=== PATIENT | male | born 1980 | race Caucasian/White ===

== ENCOUNTER 2017-10-07 15:50 | Inpatient (IN) | payer MEDICAID ==
[2017-10-07 15:51] VITALS: BMI 24.8
--- NOTE | 2017-10-07 16:36 | C.PDOC ---
History Of Present Illness <Vi Luz - Last Filed: 10/07/17 18:09> <Kd Reynolds - Last Filed: 10/07/17 19:58> 37 y/o male with history of bipolar disorder presents to ED sent by for evaluation on worsening anxiety, depression and auditory hallucinations, " cant be around people any more". Patient reports he is compliant with medication. Otherwise, pt denies any physical complaints at this time. On re- eval, pt appears AAO#3, appropriate, not in any apparent distress. (Vi Luz) History Per: Patient History/Exam Limitations: no limitations Onset/Duration Of Symptoms: Days Current Symptoms Are (Timing): Still Present Suicide/Self Injury Attempted (Context): None Modifying Factor(s): None Associated Symptoms: Anxiety <Vi Luz - Last Filed: 10/07/17 18:09> <Kd Reynolds - Last Filed: 10/07/17 19:58> Time Seen by Provider: 10/07/17 16:21 Chief Complaint (Nursing): Psychiatric Evaluation Past Medical History Reviewed: Historical Data, Nursing Documentation, Vital Signs - Medical History PMH: Anxiety, Bipolar Disorder Surgical History: No Surg Hx Family History: States: No Known Family Hx - Social History Hx Alcohol Use: No Hx Substance Use: No - Immunization History Hx Influenza Vaccination: No <Vi Luz - Last Filed: 10/07/17 18:09> Vital Signs: Last Vital Signs Temp 98.1 F 10/07/17 16:01 Pulse 97 H 10/07/17 16:01 Resp 18 10/07/17 16:01 BP 128/85 10/07/17 16:01 Pulse Ox 98 10/07/17 18:14 Review Of Systems Constitutional: Negative for: Fever, Chills Cardiovascular: Negative for: Chest Pain, Palpitations Respiratory: Negative for: Shortness of Breath Psych: Positive for: Anxiety. Negative for: Suicidal ideation, Withdrawal <Vi Luz - Last Filed: 10/07/17 18:09> Physical Exam - Physical Exam Appears: Well, Non-toxic, No Acute Distress, Other (Appropriate appearing) Skin: Warm, Dry, No Rash Head: Atraumatic, Normacephalic Eye(s): bilateral: PERRL Nose: No Flaring, No Discharge Oral Mucosa: Moist, No Drooling Tongue: Normal Appearing Lips: Normal Appearing Throat: No Erythema, No Drooling Neck: Trachea Midline, Supple Cardiovascular: Rhythm Regular Respiratory: No Decreased Breath Sounds, No Accessory Muscle Use, No Rales, No Rhonchi, No Stridor, No Wheezing Gastrointestinal/Abdominal: Soft, No Tenderness, No Distention, No Guarding, No Rebound Extremity: Normal ROM, No Pedal Edema, Capillary Refill (<2 seconds), No Deformity, No Swelling Neurological/Psych: Oriented x3, Normal Speech, Normal Cognition <Vi Luz - Last Filed: 10/07/17 18:09> ED Course And Treatment - Laboratory Results Result Diagrams: 10/07/17 17:03 10/07/17 17:03 Lab Interpretation: Normal O2 Sat by Pulse Oximetry: 98 (RA) Pulse Ox Interpretation: Normal Progress Note: At 18:00, pt is medically cleared for PES evaluation. After p was seen by PES, admission to psych floor s/o with Dx: Bipolar. 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 - Scribe Statement The provider has reviewed the documentation as recorded by the Scribe <Vi Luz - Last Filed: 10/07/17 18:09> <Kd Reynolds - Last Filed: 10/07/17 19:58> - Scribe Statement Magui Watkins All medical record entries made by the Scribe were at my direction and personally dictated by me. I have reviewed the chart and agree that the record accurately reflects my personal performance of the history, physical exam, medical decision making, and the department course for this patient. I have also personally directed, reviewed, and agree with the discharge instructions and disposition. (Vi Luz)
[2017-10-07 17:07] LABS: BASO # 0.1 K/uL (0.0-0.2); BASO % 0.8 % (0.0-2.0); EOS # 0.1 K/uL (0.0-0.7); HEMOGLOBIN 14.3 g/dL (12.0-18.0); LYMPH % 50.2 % (20.0-40.0); MEAN CELL VOLUME 85.7 fL (80.0-94.0); MEAN CORPUSCULAR HEMOGLOBIN 29.5 pg (27.0-31.0); MEAN CORPUSCULAR HGB CONC 34.4 g/dL (33.0-37.0); MEAN PLATELET VOLUME 8.1 fL (7.2-11.7); MONO # 0.7 K/uL (0.0-0.8); MONO % 8.8 % (0.0-10.0); NEUT # 3.1 K/uL (1.8-7.0); NEUT % 39.2 % (50.0-75.0); RBC 4.85 Mil/uL (4.40-5.90); RED CELL DISTRIBUTION WIDTH 13.9 % (11.5-14.5); WHITE BLOOD COUNT 7.9 K/uL (4.8-10.8)
[2017-10-07 17:15] LABS: URINE BACTERIA RARE (<OCC); URINE BILIRUBIN NEGATIVE (NEGATIVE); URINE BLOOD NEGATIVE (NEGATIVE); URINE CLARITY Clear (Clear); URINE COLOR Yellow (YELLOW); URINE GLUCOSE (UA) NORMAL (Normal); URINE LEUKOCYTE ESTERASE NEG Leu/uL (Negative); URINE PROTEIN NEGATIVE (NEGATIVE); URINE UROBILINOGEN NORMAL mg/dL (0.2-1.0)
[2017-10-07 17:23] LABS: ALB/GLOB RATIO 1.4 (1.0-2.1); ALBUMIN 4.6 g/dL (3.5-5.0); ALT/SGPT 23 U/L (21-72); AST/SGOT 27 U/L (17-59); BLOOD UREA NITROGEN 15 mg/dL (9-20); CALCIUM 9.5 mg/dl (8.6-10.4); GFR AFRICAN-AMERICAN > 60; GFR NON-AFRICAN AMERICAN > 60
[2017-10-07 17:26] LABS: BARBITURATES, UR NEGATIVE (NEGATIVE); BENZODIAZEPINES, UR NEGATIVE (NEGATIVE); OPIATES, UR NEGATIVE (NEGATIVE); PHENCYCLIDINE, UR NEGATIVE (NEGATIVE)
--- NOTE | 2017-10-07 20:37 | PCM.BM ---
<Aman Velasquez - Last Filed: 10/07/17 20:30> Treatment Plan Problems - Problems identified on initial assessmt Anxiety Date Initiated: 10/07/17 Time Initiated: 20:39 Assessment reference: NA Status: Active Depression Date Initiated: 10/07/17 Time Initiated: 20:39 Assessment reference: NA Status: Active Treatment assets and liabiliti Patient Assests: cooperative, educated, motivated, self-reliant, ADL independent , physically healthy, good support system, negotiates basic needs, financial stabiity, cognitively intact Patient Liabilities: substance abuse (Hx of THC, ETOH, Cocaine), other (Bipolar) - Milieu Protocol Maintain good personal hygiene: daily Encourage regular showers, every shift Remind patient to perform daily oral care, every shift Assist patient to perform ADL's Conduct patient checks and document Observation sheet: Q15 minutes (For Safety) Maintain personal safety: every shift Educate patient to report safety concerns to staff, every shift Monitor environment for contraband/sharps Medication safety: Monitor for expected outcome, potential side effects: every shift, Assess barriers to learning: every shift, Assess readiness for medication education: every shift <José Majano - Last Filed: 10/08/17 10:58> - Diagnosis (1) Bipolar disorder Status: Acute Interventions: 10/08/17 10:59 * Assess/adjust medications daily and /or as needed * See patient on an individual basis 7x/week to assess level of manic behaviors and stability * Discuss risks, benefits, side effects and alternatives of medications * <oJdee Beckman - Last Filed: 10/08/17 11:49> Family Contact Family involvement: Family/SO is involved Family contact: Patient agrees to contact Family contact name: Lupe Schulz-father Family contacted how many times per week?: 1 - Goals for Treatment Patient goals for treatment: "I need therapy." Discharge/Continuing Care - Education Needs Education Needs: Patient Medication, Patient Coping Skills - Discharge Discharge Criteria: Tolerates medication w/o severe side effects, Reduction of target symptoms Discharge to:: Home, With Family - Treatment Team Participation Discussed with Family/SO: No Was Patient/Family/SO present at Treatment Team Meeting: Yes
--- NOTE | 2017-10-08 10:24 | PCM.PSYCH ---
Initial Psychiatric Evaluation - Initial Psychiatric Evaluation Type of Admission: Voluntary Legal Status: Capacity Chief Complaint (in patient's own words): CC: "I become agitated very easily" History of Present Illness and Precipitating Events: Patient is a 37 year old male, S, who lives with his parents and siblings, came to the hospital because of increasingly paranoid and agitated behavior. 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 Patient has history of Bipolar Disorder, which was diagnosed in 2012, when he was hospitalized at [facility] for symptoms. He was "perfectly fine" after his hospitalization, from [id number], until he again had symptoms in May 2016 and was hospitalized for one month, again at [facility]. Following his second psychiatric hospitalization, patient moved back to [facility] for 6-8 months, where he lived a "restricted lifestyle", and was taken care of by his family. Patient reports that his symptoms began again this July 2017 after he was back in [place] for a few months. Patient states that he is frustrated by miscommunication with others as well as many distractions. He appeared delusional and paranoid. Patient describes his symptoms as follows: irritation, agitation by any noise, paranoia, racing thoughts, pressured speech, hyper- awareness, auditory hallucinations, decreased sleep, increased energy, decreased sexual interest, anxiety, and depressive episodes. However, he denies suicidal or homicidal ideation. Patient used to be a social drinker, prior to his diagnosis in 2012. Patient uses 1 joint of marijuana/month, and has history of using marijuana (5 joints/ day) and cocaine (1 gram/week) in 2016. PMH: denied Family History: denied, psych history also denied Current Medications: Active Medications Generic Name Dose Route Start Last Admin Trade Name Freq PRN Reason Stop Dose Admin Benztropine Mesylate 1 mg 10/07/17 21:31 Cogentin PO BID PRN Allergy symptoms Benztropine Mesylate 2 mg 10/07/17 22:50 Cogentin PO Q6 PRN Extra Pyramidal Symptoms Diphenhydramine HCl 50 mg 10/07/17 22:50 Benadryl PO Q6 PRN Extra Pyramidal Symptoms Divalproex Sodium 250 mg 10/08/17 10:[address] PO BID AMY Haloperidol 5 mg 10/07/17 22:50 Haldol PO Q6 PRN Agitation Haloperidol 5 mg 10/08/17 10:00 Haldol PO BID AMY Lorazepam 1 mg 10/07/17 22:50 Ativan PO Q6 PRN Anxiety Trazodone HCl 50 mg 10/07/17 23:00 10/07/17 23:52 Desyrel PO Not Given HS [facility] Past Psychiatric History - Past Psychiatric History Previous Treatment History: Inpatient Pertinent Medical Hx (Current Medical&Sleep Prob, Allergies): Allergies Allergy/AdvReac Type Severity Reaction Status Date / Time No Known Allergies Allergy Verified 10/07/17 16:00 Clonazepam [Klonopin] 1 tab PO HS 06/21/15 Review of Systems - Review of Systems All systems: reviewed and no additional remarkable complaints except - Psychiatric Psychiatric: Abnormal Sleep Pattern, Anxiety, Auditory Hallucinations, Behavioral Changes, Change in Libido, Depression, Difficulty Concentrating, Irritability, Mood Swings, Paranoia. absent: Homicidal Ideation, Suicidal Ideation, Visual Hallucinations Mental Status Examination - Personal Presentation Personal Presentation: Looks stated age - Affect Affect: Constricted - Motor Activity Motor Activity: Calm - Reliability in Providing Information Reliability in Providing Information: Poor, due to altered mood - Speech Speech: Organized - Mood Mood: Depressed, Anxious - Formal Thought Process Formal Thought Process: Delusions, Paranoia - Hallucinations/Delusions Hallucinations: Auditory Delusions: Persecution - Obsessions/Compulsions Obsessions: No Compulsions: No - Cognitive Functions Orientation: Person, Place, Situation, Time Sensorium: Alert Attention/Concentration: Attentive Abstract Thinking: Russell Estimate of Intelligence: Below average Judgement: Imparied, as evidence by: Poor judgement, Imparied, as evidence by: Lack of insight into illness - Risk Risk: Diminished functioning, Other (agitated and aggressive) - Strength & Assets Inventory Strength & Assets Inventory: Family support, Cooperative DSM 5 DX - DSM 5 DSM 5 Diagnosis: Bipolar Disorder Manic severe with psychotic symptoms - Recommended/Plan of Treatment Treatment Recommendations and Plan of Treatment: Bipolar Disorder Manic severe with psychotic symptoms -psychotherapy -supportive therapy, group therapy, individual therapy -Cogentin 1 mg PO BID PRN -Cogentin 2 mg PO q6 PRN -Benadryl 50 mg PO q6 PRN -Depakote 250 mg PO BID -Haldol 5 mg PO q6 PRN -Ativan 1 mg PO q6 PRN -Desyrel 50 mg PO HS
[2017-10-08] MEDS: Divalproex 250 mg DR Tab PO SCH ×2 (10:55→17:44)
--- NOTE | 2017-10-09 10:04 | PCM.PYCHPN ---
Psychiatric Progress Note - Psychiatric Progress Note Patient seen today, length of contact: 15 min Patient Chief Complaint: CC: "I can't stand the noise of the people" Problems Identified/Issues Discussed: Patient seen and evaluated, chart reviewed and discussed with the nurse. Patient appears more organized and some what internally preoccupied. He still reports of hearing voices. Patient still appears paranoid and delusional. He reports depressed mood and at times feelings of hopelessness and helplessness , irritability and agitation. Patient remained isolated, confined and withdrawn. Patient is compliant with medications and denies any side effects. Symptoms are improving but need more time to stabilize. Support and psychoeducation given. Medication Change: Yes Medical Record Reviewed: Yes Mental Status Examination - Cognitive Function Orientation: Person, Place, Situation, Time Memory: Intact Attention: WNL Concentration: Poor Association: Loose Fund of Knowledge: WNL - Mood Mood: Depressed, Anxious - Affect Affect: Constricted - Speech Speech: Soft - Formal Thought Process Formal Thought Process: Delusions, Paranoia, Loosening of associations - Suicidal Ideation Suicidal Ideation: No - Homicidal Ideation Homicidal Ideation: No Goal/Treatment Plan - Goal/Treatment Plan Need for Continued Stay: Discharge may exacerbated symptoms, Severe functional impairment Progress Toward Problem(s) and Goals/Treatment Plan: Bipolar Disorder Manic severe with psychotic symptoms -psychotherapy -supportive therapy, group therapy, individual therapy -Cogentin 1 mg PO BID PRN -Cogentin 2 mg PO q6 PRN -Benadryl 50 mg PO q6 PRN -Depakote 500 mg PO BID -Haldol 5 mg PO q6 PRN -Ativan 1 mg PO q6 PRN -Desyrel 100 mg PO HS -Haldol 5 MG PO BID - Smoking Cessation Smoking Cessation Initiated: No
[2017-10-09] MEDS: Divalproex 250 mg DR Tab PO SCH (10:42)
[2017-10-09] MEDS: Divalproex 500 mg DR Tab PO SCH (17:21)
[2017-10-10] MEDS: Divalproex 500 mg DR Tab PO SCH ×2 (10:10→18:30)
--- NOTE | 2017-10-10 10:35 | PCM.PYCHPN ---
Psychiatric Progress Note - Psychiatric Progress Note Patient seen today, length of contact: 15 min Patient Chief Complaint: CC: "I can't stand the noise of the people" Problems Identified/Issues Discussed: Patient seen and evaluated, chart reviewed and discussed with the nurse. Patient still appears somewhat paranoid and delusional. However, he appears more organized and less internally preoccupied. He reports some improvement in the voices. He reports irritability and agitation. Patient remained isolated, confined and withdrawn. Patient is compliant with medications and denies any side effects. Symptoms are improving but need more time to stabilize. Support and psychoeducation given. Medication Change: Yes Medical Record Reviewed: Yes Mental Status Examination - Cognitive Function Orientation: Person, Place, Situation, Time Memory: Intact Attention: WNL Concentration: WNL Association: Loose Fund of Knowledge: WNL - Mood Mood: Depressed, Anxious - Affect Affect: Constricted - Speech Speech: Soft - Formal Thought Process Formal Thought Process: Delusions, Paranoia, Loosening of associations - Suicidal Ideation Suicidal Ideation: No - Homicidal Ideation Homicidal Ideation: No Goal/Treatment Plan - Goal/Treatment Plan Need for Continued Stay: Discharge may exacerbated symptoms, Severe functional impairment Progress Toward Problem(s) and Goals/Treatment Plan: Bipolar Disorder Manic severe with psychotic symptoms -psychotherapy -supportive therapy, group therapy, individual therapy -Cogentin 1 mg PO BID PRN -Cogentin 2 mg PO q6 PRN -Benadryl 50 mg PO q6 PRN -Depakote 500 mg PO BID -Haldol 5 mg PO q6 PRN -Ativan 1 mg PO q6 PRN -Desyrel 100 mg PO HS -Haldol 10 mg PO BID - Smoking Cessation Smoking Cessation Initiated: No
[2017-10-11 06:36] VITALS: O2SAT 97
[2017-10-11] MEDS: Divalproex 500 mg DR Tab PO SCH ×2 (09:37→17:32)
--- NOTE | 2017-10-11 13:14 | PCM.PYCHPN ---
Psychiatric Progress Note - Psychiatric Progress Note Patient seen today, length of contact: 15 min Patient Chief Complaint: "Anxious today" Problems Identified/Issues Discussed: The pt is seen, chart reviewed, case discussed with staff. Support and psychoeducation given, CBT used briefly No new symptoms reported, improving slowly and needs more time No SEs from medications, risks discussed. After care discussed Medication Change: Yes (cogentin started) Medical Record Reviewed: Yes Mental Status Examination - Cognitive Function Orientation: Person, Place, Situation, Time Memory: Intact Attention: WNL Concentration: WNL Association: Loose Fund of Knowledge: WNL - Mood Mood: Depressed, Anxious - Affect Affect: Constricted - Speech Speech: Soft - Formal Thought Process Formal Thought Process: Delusions, Paranoia - Suicidal Ideation Suicidal Ideation: No - Homicidal Ideation Homicidal Ideation: No Goal/Treatment Plan - Goal/Treatment Plan Need for Continued Stay: Discharge may exacerbated symptoms, Severe functional impairment Progress Toward Problem(s) and Goals/Treatment Plan: Continue medications Support and psychoeducation daily Attend groups and activities daily After care planning by PATRIZIA
[2017-10-12] MEDS: Divalproex 500 mg DR Tab PO SCH ×2 (09:14→17:20)
[2017-10-13 07:47] VITALS: RESP 18
[2017-10-13] MEDS: Divalproex 500 mg DR Tab PO SCH ×2 (09:47→17:19)
--- NOTE | 2017-10-13 10:03 | PCM.PYCHPN ---
Psychiatric Progress Note - Psychiatric Progress Note Patient seen today, length of contact: 18 min Patient Chief Complaint: CC: "I am slowly feeling better" Problems Identified/Issues Discussed: Patient seen and evaluated, chart reviewed and discussed with the nurse. Patient still appears somewhat paranoid and delusional. However, he appears more organized and less internally preoccupied. He reports some improvement in the voices. He reports less irritability and agitation. Patient is more social and less withdrawn. Patient states he is sleeping well and that his mood is improving. Patient is compliant with medications and denies any side effects. Symptoms are improving but need more time to stabilize. Support and psychoeducation given. Medication Change: Yes (cogentin started) Medical Record Reviewed: Yes Mental Status Examination - Cognitive Function Orientation: Person, Place, Situation, Time Memory: Intact Attention: WNL Concentration: WNL Association: Loose Fund of Knowledge: WNL - Mood Mood: Depressed, Anxious - Affect Affect: Constricted - Speech Speech: Soft - Formal Thought Process Formal Thought Process: Delusions, Paranoia, Loosening of associations - Suicidal Ideation Suicidal Ideation: No - Homicidal Ideation Homicidal Ideation: No Goal/Treatment Plan - Goal/Treatment Plan Need for Continued Stay: Discharge may exacerbated symptoms, Severe functional impairment Progress Toward Problem(s) and Goals/Treatment Plan: Bipolar Disorder Manic severe with psychotic symptoms -psychotherapy -supportive therapy, group therapy, individual therapy -Cogentin 1 mg PO BID PRN -Cogentin 2 mg PO q6 PRN -Benadryl 50 mg PO q6 PRN -Depakote 500 mg PO BID -Haldol 5 mg PO q6 PRN -Haldol 10 mg PO BID -Ativan 1 mg PO q6 PRN -Desyrel 100 mg PO HS
--- NOTE | 2017-10-13 13:39 | PCM.PYCHPN ---
Psychiatric Progress Note - Psychiatric Progress Note Patient seen today, length of contact: 15 min Patient Chief Complaint: "OK" Problems Identified/Issues Discussed: The pt is seen, chart reviewed, case discussed with staff. The pt is compliant with medications and reports no side-effects. Symptoms are improving but needs more time to stabilize. After care discussed, support and psychoeducation given. Medication Change: No Medical Record Reviewed: Yes Mental Status Examination - Cognitive Function Orientation: Person, Place, Situation, Time Memory: Intact Attention: WNL Concentration: WNL Association: Loose Fund of Knowledge: WNL - Mood Mood: Depressed, Anxious - Affect Affect: Constricted - Speech Speech: Soft - Formal Thought Process Formal Thought Process: Delusions, Paranoia - Suicidal Ideation Suicidal Ideation: No - Homicidal Ideation Homicidal Ideation: No Goal/Treatment Plan - Goal/Treatment Plan Need for Continued Stay: Discharge may exacerbated symptoms, Severe functional impairment Progress Toward Problem(s) and Goals/Treatment Plan: Continue medications Support and psychoeducation daily Attend groups and activities daily After care planning by PATRIZIA
[2017-10-14] MEDS: Divalproex 500 mg DR Tab PO SCH ×2 (10:11→17:32)
--- NOTE | 2017-10-14 10:31 | PCM.PYCHPN ---
Psychiatric Progress Note - Psychiatric Progress Note Patient seen today, length of contact: 16 min Patient Chief Complaint: CC: "I am doing better" Problems Identified/Issues Discussed: Patient seen and evaluated, chart reviewed and discussed with the nurse. Patient reports that his mood is improving. Patient reports less irritability and agitation. Patient is more social and less withdrawn, is able to have conversations with other patients without background noise agitating him. Patient states he is sleeping well, but he woke up three times in pain. Patient is compliant with medications and denies any side effects. Symptoms are improving but need more time to stabilize. Support and psychoeducation given. Medication Change: Yes (cogentin started) Medical Record Reviewed: Yes Mental Status Examination - Cognitive Function Orientation: Person, Place, Situation, Time Memory: Intact Attention: WNL Concentration: WNL Association: Loose Fund of Knowledge: WNL - Mood Mood: Anxious - Affect Affect: Broad - Speech Speech: Appropriate - Formal Thought Process Formal Thought Process: Delusions, Paranoia - Suicidal Ideation Suicidal Ideation: No - Homicidal Ideation Homicidal Ideation: No Goal/Treatment Plan - Goal/Treatment Plan Need for Continued Stay: Discharge may exacerbated symptoms, Severe functional impairment Progress Toward Problem(s) and Goals/Treatment Plan: Bipolar Disorder Manic severe with psychotic symptoms -psychotherapy -supportive therapy, group therapy, individual therapy -Cogentin 1 mg PO BID PRN -Cogentin 2 mg PO q6 PRN -Benadryl 50 mg PO q6 PRN -Depakote 500 mg PO BID -Haldol 5 mg PO q6 PRN -Haldol 10 mg PO BID -Ativan 1 mg PO q6 PRN -Desyrel 100 mg PO HS
--- NOTE | 2017-10-15 10:41 | PCM.BM ---
<RkJodee - Last Filed: 10/15/17 10:40> Treatment Plan Problems - Problems identified on initial assessmt Anxiety Date Initiated: 10/07/17 Time Initiated: 20:39 Assessment reference: NA Status: Active Depression Date Initiated: 10/07/17 Time Initiated: 20:39 Assessment reference: NA Status: Active Treatment assets and liabiliti Patient Assests: cooperative, educated, motivated, self-reliant, ADL independent , physically healthy, good support system, negotiates basic needs, financial stabiity, cognitively intact Patient Liabilities: substance abuse (Hx of THC, ETOH, Cocaine), other (Bipolar) - Milieu Protocol Maintain good personal hygiene: daily Encourage regular showers, every shift Remind patient to perform daily oral care, every shift Assist patient to perform ADL's Conduct patient checks and document Observation sheet: Q15 minutes (For Safety) Maintain personal safety: every shift Educate patient to report safety concerns to staff, every shift Monitor environment for contraband/sharps Medication safety: Monitor for expected outcome, potential side effects: every shift, Assess barriers to learning: every shift, Assess readiness for medication education: every shift Milieu Narrative: Bipolar Disorder Manic severe with psychotic symptoms -psychotherapy -supportive therapy, group therapy, individual therapy -Cogentin 1 mg PO BID PRN -Cogentin 2 mg PO q6 PRN -Benadryl 50 mg PO q6 PRN -Depakote 500 mg PO BID -Haldol 5 mg PO q6 PRN -Haldol 10 mg PO BID -Ativan 1 mg PO q6 PRN -Desyrel 100 mg PO HS Family Contact Family involvement: Family/SO is involved Family contact: Patient agrees to contact Family contact name: Lupe Schulz-father Family contacted how many times per week?: 1 - Goals for Treatment Patient goals for treatment: "I need therapy." Discharge/Continuing Care - Education Needs Education Needs: Patient Medication, Patient Coping Skills - Discharge Discharge Criteria: Tolerates medication w/o severe side effects, Reduction of target symptoms Discharge to:: Home, With Family - Treatment Team Participation Patient/Family/SO Statement: Bipolar Disorder Manic severe with psychotic symptoms -psychotherapy -supportive therapy, group therapy, individual therapy -Cogentin 1 mg PO BID PRN -Cogentin 2 mg PO q6 PRN -Benadryl 50 mg PO q6 PRN -Depakote 500 mg PO BID -Haldol 5 mg PO q6 PRN -Haldol 10 mg PO BID -Ativan 1 mg PO q6 PRN -Desyrel 100 mg PO HS Discussed with Family/SO: No Was Patient/Family/SO present at Treatment Team Meeting: Yes Treatment Plan Review - Problem Anxiety Time Initiated: 20:39 Depression Time Initiated: 20:39 - Discharge / Continuing Care Discharge to:: Home, With Family Behavioral Health Services: Outpatient therapy Health Needs: Medications/Rx <Yun Garza - Last Filed: 10/16/17 09:07> Treatment Plan Review - Problem Anxiety Date Initiated: 10/16/17 Time Initiated: 09:06 Progress toward outcomes: improved Depression Date Initiated: 10/16/17 Time Initiated: 09:07 Progress toward outcomes: improved <José Majano - Last Filed: 10/16/17 10:10> - Diagnosis (1) Bipolar disorder Status: Acute Interventions: 10/16/17 10:10 * Assess/adjust medications daily and /or as needed * See patient on an individual basis 7x/week to assess level of manic behaviors and stability * Discuss risks, benefits, side effects and alternatives of medications *
[2017-10-15] MEDS: Divalproex 500 mg DR Tab PO SCH ×2 (11:13→18:22)
[2017-10-16 06:47] VITALS: PULSE 77; TEMP 97.6
[2017-10-16 09:48] VITALS: BP 112/71
--- NOTE | 2017-10-16 10:15 | PCM.PYCHDC ---
Mental Status Examination - Mental Status Examination Orientation: Person, Place, Situation, Time Memory: Intact Mood: Neutral Affect: Constricted Speech: Soft Attention: WNL Concentration: WNL Association: WNL Fund of Knowledge: WNL Formal Thought Process: No Impairment Description of patient's judgement and insight: good, fair Psychotic Thoughts and Behaviors: denies any AVH Suicidal Ideation: No Current Homicidal Ideation?: No Discharge Summary - Discharge Note Reason for Hospitalization: Patient is a 37 year old male, S, who lives with his parents and siblings, came to the hospital because of increasingly paranoid and agitated behavior. 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 Patient has history of Bipolar Disorder, which was diagnosed in 2012, when he was hospitalized at [facility] for symptoms. He was "perfectly fine" after his hospitalization, from [id number], until he again had symptoms in May 2016 and was hospitalized for one month, again at [facility]. Following his second psychiatric hospitalization, patient moved back to [facility] for 6-8 months, where he lived a "restricted lifestyle", and was taken care of by his family. Patient reports that his symptoms began again this July 2017 after he was back in [place] for a few months. Patient states that he is frustrated by miscommunication with others as well as many distractions. He appeared delusional and paranoid. Patient describes his symptoms as follows: irritation, agitation by any noise, paranoia, racing thoughts, pressured speech, hyper- awareness, auditory hallucinations, decreased sleep, increased energy, decreased sexual interest, anxiety, and depressive episodes. However, he denies suicidal or homicidal ideation. Patient used to be a social drinker, prior to his diagnosis in 2012. Patient uses 1 joint of marijuana/month, and has history of using marijuana (5 joints/ day) and cocaine (1 gram/week) in 2016. Consultations:: List each consultation separately and include: 1. Reason for request. 2. Findings. 3. Follow-up Summary of Hospital Course include:: 1. Description of specific treatment plan utilized for patients during their course of treatmen. 2. Summarize the time- course for resolution of acute symptoms and/or regressed behaviors. 3. Describe issues identified and worked on during hospitalization. 4. Describe medication utilized. 5. Describe medical problems identified and treated. 6. Reassessment of suicide risk Summary of Hospital Course: During the course of his stay, patient (pt) started progressively improving and he no longer remained irritable, depressed, and suicidal. His mood was improved and he started attending groups and meetings and started socializing. Patient denied any feelings of hopelessness, helplessness, and worthlessness, denied any problem with the sleep or appetite, denied suicidal ideation or homicidal ideation. Pt denied any auditory or visual hallucinations. Some changes were made in his current medications and patient was discharged on following medications. He tolerated these medications very well and denied any side effects. CBT and [place] were used. Patient was discharged to the [facility]. - Diagnosis (1) Bipolar disorder Status: Acute - Final Diagnosis (DSM 5) Condition upon Discharge: STABLE DSM 5: Bipolar Disorder Manic severe with psychotic symptoms Disposition: HOME/ ROUTINE Follow-up Treatment Plan: Education: Pt was educated and counseled about the risks and benefits of taking and not taking medications. Pt was educated and counseled about the risks of drinking and abusing drugs. Pt was educated and counseled to go to the ER or call 911 if pt develop suicidal ideation or homicidal ideation, worsening of symptoms or severe side effects of the meds. Prescriptions/Medication Reconciliation: Benztropine [Cogentin] 1 mg PO BID #60 tab Divalproex [Depakote DR] 500 mg PO BID #60 tcp Haloperidol [Haldol] 10 mg PO BID #60 tab LORazepam [Ativan] 1 mg PO BID #30 tab traZODone [Desyrel] 100 mg PO HS #30 tab - Smoking Cessation Smoking Cessation Medication prescribed: No - Antipsychotic Medications Pt discharged on 2 or more routine antipsychotic medications: No
[2017-10-16] MEDS: Divalproex 500 mg DR Tab PO SCH (10:31)
== END 2017-10-16 11:40 | disposition home or self-care (01) | DRG 430 ==
LOC: C.ER 15:50 → C.5E 19:58
PROVIDERS: ADMIT Psychiatry & Neurology Psychiatry; ATTEND Psychiatry & Neurology Psychiatry
PROC: GZHZZZZ Group Psychotherapy (ICD-10-PCS; principal; 2017-10-07)
PROC: GZ56ZZZ Individual Psychotherapy, Supportive (ICD-10-PCS; 2017-10-07)
DX: F31.2 Bipolar disorder, current episode manic severe with psychotic features (principal); F41.9 Anxiety disorder, unspecified

== ENCOUNTER 2018-06-09 16:52 | Inpatient (IN) | payer MEDICAID ==
[2018-06-09 16:54] VITALS: BMI 29.2
[2018-06-09 18:07] LABS: BASO # 0.1 K/uL (0.0-0.2); BASO % 0.9 % (0.0-2.0); EOS % 0.2 % (0.0-4.0); HEMOGLOBIN 14.5 g/dL (12.0-18.0); LYMPH # 3.7 K/uL (1.0-4.3); LYMPH % 31.6 % (20.0-40.0); MEAN CELL VOLUME 86.9 fL (80.0-94.0); MEAN CORPUSCULAR HEMOGLOBIN 28.6 pg (27.0-31.0); MEAN CORPUSCULAR HGB CONC 32.9 g/dL (33.0-37.0); MEAN PLATELET VOLUME 7.3 fL (7.2-11.7); MONO # 0.6 K/uL (0.0-0.8); MONO % 5.4 % (0.0-10.0); NEUT # 7.2 K/uL (1.8-7.0); NEUT % 61.9 % (50.0-75.0); RBC 5.06 Mil/uL (4.40-5.90); RED CELL DISTRIBUTION WIDTH 14.8 % (11.5-14.5); WHITE BLOOD COUNT 11.7 K/uL (4.8-10.8)
--- NOTE | 2018-06-09 18:12 | C.PDOC ---
History Of Present Illness 38 y/o male with a PMHx of anxiety and depression presents to the ED for worsening anxiety. Patient reports he is on Xanax and other psychiatric meds daily, and is compliant. Recently patient has been feeling more anxious and nervous, as if he cannot sit still. Patient called his psychiatrist Dr. Majano, who recommended he come to the ED for evaluation and admission. Denies any suicidal or homicidal ideation. Patient offers no physical complaints. Time Seen by Provider: 06/09/18 17:15 Chief Complaint (Nursing): Psychiatric Evaluation History Per: Patient History/Exam Limitations: no limitations Onset/Duration Of Symptoms: Days Current Symptoms Are (Timing): Still Present Modifying Factor(s): None Associated Symptoms: Anxiety. denies: Suicidal Thoughts, Suicidal Plan Past Medical History Reviewed: Historical Data, Nursing Documentation, Vital Signs Vital Signs: Last Vital Signs Temp 98.3 F 06/09/18 16:55 Pulse 100 H 06/09/18 16:55 Resp 18 06/09/18 16:55 BP 124/84 06/09/18 16:55 Pulse Ox 97 06/09/18 16:55 - Medical History PMH: Anxiety, Bipolar Disorder Denies: Diabetes, Hepatitis, HIV, HTN, Chronic Kidney Disease, Seizures, Sexually Transmitted Disease - [facility] Local Procedures GROUP PSYCHOTHERAPY (10/07/17) INDIVIDUAL PSYCHOTHERAPY, SUPPORTIVE (10/07/17) Family History: States: No Known Family Hx - Social History Hx Alcohol Use: No Hx Substance Use: No - Immunization History Hx Influenza Vaccination: No Review Of Systems Constitutional: Negative for: Fever, Chills, Weakness Eyes: Negative for: Redness, Other (icterus) ENT: Negative for: Mouth Swelling Cardiovascular: Negative for: Chest Pain Respiratory: Negative for: Cough, Shortness of Breath Gastrointestinal: Negative for: Nausea, Vomiting, Diarrhea Genitourinary: Negative for: Dysuria Musculoskeletal: Negative for: Back Pain Skin: Negative for: Rash Neurological: Negative for: Weakness, Numbness, Headache Psych: Positive for: Anxiety. Negative for: Suicidal ideation (or homicidal ideation) Physical Exam - Physical Exam Appears: Well, Non-toxic, No Acute Distress Skin: Normal Color, Warm, No Rash Head: Atraumatic, Normacephalic Eye(s): bilateral: Normal Inspection, PERRL, EOMI Oral Mucosa: Moist Neck: Normal ROM, Supple Chest: Symmetrical Respiratory: No Accessory Muscle Use, Other (Normal inspiratory effort) Back: Other (Ambulatory with steady upright gait) Extremity: Bilateral: Normal Color And Temperature, Normal ROM, Other (No obviou s evidence of injury/trauma to extremities) Pulses: Left Radial: Normal, Right Radial: Normal Neurological/Psych: Oriented x3, Normal Cranial Nerves ED Course And Treatment - Laboratory Results Result Diagrams: 06/09/18 18:01 06/09/18 18:01 O2 Sat by Pulse Oximetry: 97 (RA) Pulse Ox Interpretation: Normal Medical Decision Making Medical Decision Making: Impression: Anxiety Plan: - Labs ordered for medical clearance - general foundry worker to evaluate for admission Disposition Counseled Patient/Family Regarding: Diagnosis - Disposition Disposition: HOSPITALIZED Disposition Time: 20:02 Condition: STABLE Forms: [facility] (Tr[place]) - Clinical Impression Clinical Impression: Bipolar disorder - PA / SOLE TRIMMER / Resident Statement MD/DO has reviewed & agrees with the documentation as recorded. - Scribe Statement The provider has reviewed the documentation as recorded by the Rebecca Pugh All medical record entries made by the Aleshiaibsweta were at my direction and personally dictated by me. I have reviewed the chart and agree that the record accurately reflects my personal performance of the history, physical exam, medical decision making, and the department course for this patient. I have also personally directed, reviewed, and agree with the discharge instructions and disposition.
[2018-06-09 18:14] LABS: URINE BILIRUBIN NEGATIVE (NEGATIVE); URINE BLOOD NEGATIVE (NEGATIVE); URINE CLARITY Clear (Clear); URINE COLOR Straw (YELLOW); URINE GLUCOSE (UA) NORMAL (Normal); URINE LEUKOCYTE ESTERASE NEG Leu/uL (Negative); URINE PROTEIN NEGATIVE (NEGATIVE); URINE UROBILINOGEN NORMAL mg/dL (0.2-1.0)
[2018-06-09 18:31] LABS: BARBITURATES, UR NEGATIVE (NEGATIVE); OPIATES, UR NEGATIVE (NEGATIVE); PHENCYCLIDINE, UR NEGATIVE (NEGATIVE)
[2018-06-09 18:33] LABS: BENZODIAZEPINES, UR POSITIVE (NEGATIVE)
[2018-06-09 18:44] LABS: ALB/GLOB RATIO 1.6 (1.0-2.1); ALBUMIN 4.8 g/dL (3.5-5.0); ALT/SGPT 19 U/L (21-72); AST/SGOT 28 U/L (17-59); BLOOD UREA NITROGEN 7 mg/dL (9-20); CALCIUM 9.8 mg/dl (8.6-10.4); GFR NON-AFRICAN AMERICAN > 60
[2018-06-09 20:27] VITALS: O2SAT 96
--- NOTE | 2018-06-09 21:26 | PCM.BM ---
<Ava Wilhelm - Last Filed: 06/09/18 21:24> Treatment Plan Problems - Problems identified on initial assessmt Anxiety Date Initiated: 06/09/18 Time Initiated: 21:25 Assessment reference: NA Status: Active Depression Date Initiated: 06/09/18 Time Initiated: 21:25 Assessment reference: NA Status: Active Treatment assets and liabiliti Patient Assests: cooperative, educated, motivated, self-reliant, ADL independent, physically healthy, good support system, negotiates basic needs, financial stabiity, cognitively intact Patient Liabilities: live alone (Lives with family), substance abuse (Benzo, THC) - Milieu Protocol Maintain good personal hygiene: daily Encourage regular showers, daily Remind patient to perform daily oral care, daily Assist patient to perform ADL's (Self), other Assist patient to perform ADL's Conduct patient checks and document Observation sheet: Q15 minutes Maintain personal safety: every shift Educate patient to report safety concerns to staff, every shift Monitor environment for contraband/sharps Medication safety: Monitor for expected outcome, potential side effects: every shift, Assess barriers to learning: every shift, Assess readiness for medication education: every shift <Jodee Beckman - Last Filed: 06/10/18 11:39> Family Contact Family involvement: Famliy/SO not involved - Goals for Treatment Patient goals for treatment: "I need the right medication." Discharge/Continuing Care - Education Needs Education Needs: Patient Medication, Patient Coping Skills - Discharge Discharge Criteria: Tolerates medication w/o severe side effects, Reduction of target symptoms Discharge to:: Home - Treatment Team Participation Discussed with Family/SO: No Was Patient/Family/SO present at Treatment Team Meeting: Yes <José Majano - Last Filed: 06/12/18 11:00> - Diagnosis (1) Bipolar disorder Status: Acute Interventions: 06/12/18 11:00 * Assess/adjust medications daily and /or as needed * See patient on an individual basis 7x/week to assess level of manic behaviors and stability * Discuss risks, benefits, side effects and alternatives of medications *
--- NOTE | 2018-06-10 08:45 | PCM.PSYCH ---
Initial Psychiatric Evaluation - Initial Psychiatric Evaluation Type of Admission: Voluntary Legal Status: Capacity Chief Complaint (in patient's own words): I am feeling very anxious and irritable.' History of Present Illness and Precipitating Events: 38 year old [place] male, who is unemployed and lives with his father and family, presents to the ED because his mind is racing and he can't sit still or concentrate. Patient has a history of Bipolar Disorder, which was [place] [facility] Pt states he was feeling great until about 2 weeks ago. He states that he thinks his symptoms are related to the medication he is taking. Pt complains of restlessness and agitation. Pt states he has cycles of when his mind is racing and times when "it just shuts down". Pt complains of lack of focus, feeling down, and anhedonia, further elaborating that he can no longer have phone conversations with friends because he doesn't have anything to talk about. Pt appears anxious, restless, and paranoid. Pt also complains that he feels fearful and afraid when laying down for bed. He states he has feelings of depressed mood and hopelessness. He appears somewhat disorganized and internally preoccupied. Pt reports paranoia, but denies auditory or visual hallucinations. Pt states he has smoked 1 joint of marijuana 3 weeks ago and started smoking cigarettes again more frequently since 2 weeks ago. Pt denies alcohol or any other drug abuse. PMH: denied Allergies: denied Current Medications: Active Medications Generic Name Dose Route Start Last Admin Trade Name Freq PRN Reason Stop Dose Admin Influenza Virus Vaccine 60 mcg 06/12/18 10:00 Flucelvax Quad [id number] Syr IM 06/12/18 10:01 .ONCE ONE Pneumococcal Polyvalent Vaccine 0.5 ml 06/12/18 10:00 Pneumovax 23 Vaccine IM 06/12/18 10:01 .ONCE ONE Past Psychiatric History - Past Psychiatric History Previous Treatment History: Inpatient Pertinent Medical Hx (Current Medical&Sleep Prob, Allergies): Allergies Allergy/AdvReac Type Severity Reaction Status Date / Time No Known Allergies Allergy Verified 06/09/18 17:01 Benztropine [Cogentin] 1 mg PO BID #60 tab 10/16/17 Divalproex [Depakote DR] 500 mg PO BID #60 tcp 10/16/17 Alprazolam [Xanax] 0.5 mg PO BID 06/09/18 Haloperidol [Haldol] 5 mg PO HS 06/09/18 Hydroxyzine HCl 25 mg PO BID 06/09/18 Review of Systems - Review of Systems All systems: reviewed and no additional remarkable complaints except - Psychiatric Psychiatric: Anxiety, Irritability, Mood Swings, Panic Attacks, Paranoia Mental Status Examination - Personal Presentation Personal Presentation: Looks stated age - Affect Affect: Broad - Motor Activity Motor Activity: Psychomotor Agitation - Reliability in Providing Information Reliability in Providing Information: Poor, due to alteration in thoughts, Poor, due to altered mood - Speech Speech: Disorganized - Mood Mood: Depressed, Anxious - Formal Thought Process Formal Thought Process: Delusions, Paranoia, Loosening of associations - Hallucinations/Delusions Delusions: Persecution - Obsessions/Compulsions Obsessions: No Compulsions: No - Cognitive Functions Orientation: Person, Place, Situation, Time Sensorium: Alert Attention/Concentration: Attentive Abstract Thinking: Lillie Estimate of Intelligence: Below average Judgement: Imparied, as evidence by: Poor judgement, Imparied, as evidence by: Lack of insight into illness - Risk Risk: Diminished functioning - Strength & Assets Inventory Strength & Assets Inventory: Family support DSM 5 DX - DSM 5 DSM 5 Diagnosis: Bipolar disorder mixed severe with psychotic features - Recommended/Plan of Treatment Treatment Recommendations and Plan of Treatment: Bipolar disorder mixed severe with psychotic features CBT Psychoeducation Supportive therapy, group therapy and milieu therapy Depakote 500 mg PO BID DC Haldol 10 mg PO BID Prolixin 5 mg PO BID Klonopin 1 mg PO TID Ativan 1 mg PO Q 6 hr prn Seroquel 100 mg PO QHS - Smoking Cessation Smoking Cessation Initiated: No
[2018-06-10] MEDS: Divalproex 500 mg DR Tab PO SCH ×2 (09:36→17:39)
[2018-06-10 11:49] VITALS: RESP 20
[2018-06-11] MEDS: Divalproex 500 mg DR Tab PO SCH ×2 (09:01→17:18)
--- NOTE | 2018-06-11 14:17 | PCM.PYCHPN ---
Psychiatric Progress Note - Psychiatric Progress Note Patient seen today, length of contact: 15 min Patient Chief Complaint: I am feeling very anxious and irritable.' Problems Identified/Issues Discussed: Patient seen in neurology, chart reviewed and discussed with staff. Patient still reports of anxiety, irritability and agitation. He appears paranoid and delusional. However he denies any auditory hallucinations. He reports at times depressed mood, and at times feelings of hopelessness and helplessness. He is taking medication and denies any side effects. Supportive therapy was given Medication Change: Yes Medical Record Reviewed: Yes Mental Status Examination - Cognitive Function Orientation: Person, Place, Situation, Time Memory: Intact Attention: WNL Concentration: Poor Association: Loose Fund of Knowledge: Poor - Mood Mood: Anxious - Affect Affect: Broad - Formal Thought Process Formal Thought Process: Delusions, Paranoia, Loosening of associations - Suicidal Ideation Suicidal Ideation: No - Homicidal Ideation Homicidal Ideation: No Goal/Treatment Plan - Goal/Treatment Plan Need for Continued Stay: Severe functional impairment Progress Toward Problem(s) and Goals/Treatment Plan: Bipolar disorder mixed severe with psychotic features CBT Psychoeducation Supportive therapy, group therapy and milieu therapy Depakote 500 mg PO BID Depakote 250 mg p.o. nightly Prolixin 5 mg PO BID Prolixin 10 mg p.o. nightly Klonopin 1 mg PO BID Ativan 1 mg PO Q 6 hr prn Seroquel 100 mg PO QHS
[2018-06-11] MEDS ORDERED: Divalproex 250 mg DR Tab PO SCH (22:00)
[2018-06-12 07:03] VITALS: BP 97/56; PULSE 76; TEMP 97.5
[2018-06-12] MEDS ORDERED: Influenza Vaccine 60 mcg/0.5 mL SYR (4YR UP) IM ONE (10:00)
[2018-06-12] MEDS ORDERED: Pneumococcal 23-Valent Vaccine IM ONE (10:00)
[2018-06-12] MEDS: Divalproex 500 mg DR Tab PO SCH (10:23)
--- NOTE | 2018-06-12 10:31 | PCM.PYCHDC ---
Mental Status Examination - Mental Status Examination Orientation: Person, Place, Situation, Time Memory: Intact Mood: Neutral Affect: Constricted Speech: Soft Attention: WNL Concentration: WNL Association: WNL Fund of Knowledge: WNL Formal Thought Process: No Impairment Description of patient's judgement and insight: good, fair Psychotic Thoughts and Behaviors: denies any AVH Suicidal Ideation: No Current Homicidal Ideation?: No Discharge Summary - Discharge Note Reason for Hospitalization: 38 year old [place]vian male, who is unemployed and lives with his father and family, presents to the ED because his mind is racing and he can't sit still or concentrate. Patient has a history of Bipolar Disorder, which was diagnosed in 2012 at [facility]. Pt states he was feeling great until about 2 weeks ago. He states that he thinks his symptoms are related to the medication he is taking. Pt complains of restlessness and agitation. Pt states he has cycles of when his mind is racing and times when "it just shuts down". Pt complains of lack of focus, feeling down, and anhedonia, further elaborating that he can no longer have phone conversations with friends because he doesn't have anything to talk about. Pt appears anxious, restless, and paranoid. Pt also complains that he feels fearful and afraid when laying down for bed. He states he has feelings of depressed mood and hopelessness. He appears somewhat disorganized and internally preoccupied. Pt reports paranoia, but denies auditory or visual hallucinations. Pt states he has smoked 1 joint of marijuana 3 weeks ago and started smoking cigarettes again more frequently since 2 weeks ago. Pt denies alcohol or any other drug abuse. Consultations:: List each consultation separately and include: 1. Reason for request. 2. Findings. 3. Follow-up Summary of Hospital Course include:: 1. Description of specific treatment plan utilized for patients during their course of treatmen. 2. Summarize the time- course for resolution of acute symptoms and/or regressed behaviors. 3. Describe issues identified and worked on during hospitalization. 4. Describe medication utilized. 5. Describe medical problems identified and treated. 6. Reassessment of suicide risk Summary of Hospital Course: 38 year old [place] male, who is unemployed and lives with his father and family, presents to the ED because his mind is racing and he can't sit still or concentrate. Patient has a history of Bipolar Disorder, which was diagnosed in 2012 at [facility]. Pt states he was feeling great until about 2 weeks ago. He states that he thinks his symptoms are related to the medication he is taking. Pt complains of restlessness and agitation. Pt states he has cycles of when his mind is racing and times when "it just shuts down". Pt complains of lack of focus, feeling down, and anhedonia, further elaborating that he can no longer have phone conversations with friends because he doesn't have anything to talk about. Pt appears anxious, restless, and paranoid. Pt also complains that he feels fearful and afraid when laying down for bed. He states he has feelings of depressed mood and hopelessness. He appears somewhat disorganized and internally preoccupied. Pt reports paranoia, but denies auditory or visual hallucinations. Pt states he has smoked 1 joint of marijuana 3 weeks ago and started smoking cigarettes again more frequently since 2 weeks ago. Pt denies alcohol or any other drug abuse. PMH: denied Allergies: denied - Final Diagnosis (DSM 5) Condition upon Discharge: STABLE DSM 5: Bipolar disorder mixed severe with psychotic features Disposition: HOME/ ROUTINE Follow-up Treatment Plan: Bipolar disorder mixed severe with psychotic features CBT Psychoeducation Supportive therapy, group therapy and milieu therapy Depakote 500 mg PO BID Depakote 250 mg p.o. nightly Prolixin 5 mg PO BID Prolixin 10 mg p.o. nightly Klonopin 1 mg PO BID Ativan 1 mg PO Q 6 hr prn Seroquel 100 mg PO QHS Prescriptions/Medication Reconciliation: Benztropine [Cogentin] 1 mg PO BID #60 tab clonazePAM [Klonopin] 1 mg PO BID #28 tab Divalproex [Depakote DR] 250 mg PO HS #30 tcp Divalproex [Depakote DR] 500 mg PO BID #60 tcp fluPHENAZine [Prolixin] 10 mg PO BID #60 tab QUEtiapine [Seroquel] 100 mg PO HS #30 tab - Antipsychotic Medications Pt discharged on 2 or more routine antipsychotic medications: No
== END 2018-06-12 12:30 | disposition home or self-care (01) | DRG 430 ==
LOC: C.ER 16:52 → C.5E 20:03
PROC: GZHZZZZ Group Psychotherapy (ICD-10-PCS; principal; 2018-06-09)
PROC: HZ52ZZZ Individual Psychotherapy for Substance Abuse Treatment, Cognitive-Behavioral (ICD-10-PCS; 2018-06-09)
PROC: HZ59ZZZ Individual Psychotherapy for Substance Abuse Treatment, Supportive (ICD-10-PCS; 2018-06-09)
PROC: HZ56ZZZ Individual Psychotherapy for Substance Abuse Treatment, Psychoeducation (ICD-10-PCS; 2018-06-09)
PROC: HZ42ZZZ Group Counseling for Substance Abuse Treatment, Cognitive-Behavioral (ICD-10-PCS; 2018-06-09)
PROC: HZ46ZZZ Group Counseling for Substance Abuse Treatment, Psychoeducation (ICD-10-PCS; 2018-06-09)
PROC: GZ58ZZZ Individual Psychotherapy, Cognitive-Behavioral (ICD-10-PCS; 2018-06-09)
PROC: GZ56ZZZ Individual Psychotherapy, Supportive (ICD-10-PCS; 2018-06-09)
DX: F31.64 Bipolar disorder, current episode mixed, severe, with psychotic features (principal); F41.9 Anxiety disorder, unspecified; F17.210 Nicotine dependence, cigarettes, uncomplicated; F12.10 Cannabis abuse, uncomplicated; F19.10 Other psychoactive substance abuse, uncomplicated

== ENCOUNTER 2018-07-10 17:52 | Emergency (ER) | payer MEDICAID ==
[2018-07-10 17:53] VITALS: BMI 29.2
[2018-07-10] MEDS ORDERED: Sodium Chloride 0.9% 1,000 ML IV ONE ×4 (18:24→22:39)
--- NOTE | 2018-07-10 18:28 | C.PDOC ---
History Of Present Illness 38 y/o male pt with hx of bipolar disorder, anxiety and psychosis presents to the ER by referral from Dr. Rodriguez for fluid intake from an elevated CPK. Associated sx includes body cramps. Pt denies headache, chest pain, dizziness an d SOB. Pt is compliant with all of his medications. Time Seen by Provider: 07/10/18 18:17 Chief Complaint (Nursing): Abnormal Labs History Per: Patient History/Exam Limitations: no limitations Onset/Duration Of Symptoms: Days Current Symptoms Are (Timing): Still Present Past Medical History Reviewed: Historical Data, Nursing Documentation, Vital Signs Vital Signs: Last Vital Signs Temp 98.7 F 07/10/18 17:58 Pulse 92 H 07/10/18 17:58 Resp 20 07/10/18 17:58 BP 136/93 H 07/10/18 17:58 Pulse Ox 98 07/10/18 17:58 - Medical History PMH: Anxiety, Bipolar Disorder, Depression - [facility] Procedures GROUP CAMPUS RECRUITER FOR SUBSTANCE ABUSE TREATMENT, PSYCHOEDUCATION (06/09/18) GROUP CAMPUS RECRUITER FOR SUBSTANCE ABUSE, COGNITIVE BEHAVIORAL (06/09/18) GROUP PSYCHOTHERAPY (06/09/18) INDIV PSYCHOTHERAPY FOR SUBSTANCE ABUSE TREATMENT, SUPPORT (06/09/18) INDIV PSYCHOTHERAPY FOR SUBSTANCE ABUSE, COGNITIV BEHAVIORAL (06/09/18) INDIV PSYCHOTHERAPY FOR SUBSTANCE ABUSE, PSYCHOEDUCATION (06/09/18) INDIVIDUAL PSYCHOTHERAPY, COGNITIVE-BEHAVIORAL (06/09/18) INDIVIDUAL PSYCHOTHERAPY, SUPPORTIVE (06/09/18) Family History: States: No Known Family Hx - Social History Hx Alcohol Use: No Hx Substance Use: No - Immunization History Hx Influenza Vaccination: No Review Of Systems Except As Marked, All Systems Reviewed And Found Negative. Constitutional: Positive for: Other (elevated CPK) Cardiovascular: Negative for: Chest Pain Respiratory: Negative for: Shortness of Breath Musculoskeletal: Positive for: Other (body cramps) Neurological: Negative for: Headache, Dizziness Physical Exam - Physical Exam Appears: Non-toxic, No Acute Distress Skin: Warm, Dry Head: Normacephalic Eye(s): bilateral: Normal Inspection Chest: Symmetrical, No Deformity Cardiovascular: Rhythm Regular Respiratory: Normal Breath Sounds, No Rales, No Rhonchi, No Wheezing Gastrointestinal/Abdominal: Soft, No Tenderness Extremity: Normal ROM (x4), No Tenderness, No Pedal Edema, No Calf Tenderness, No Deformity, No Swelling Neurological/Psych: Oriented x3, Normal Speech, Normal Cognition ED Course And Treatment - Laboratory Results Result Diagrams: 07/10/18 18:29 07/10/18 18:29 O2 Sat by Pulse Oximetry: 98 (RA) Pulse Ox Interpretation: Normal Medical Decision Making Medical Decision Making: Impression: referred by Dr. Rodriguez for elevated CPK Plans: -- chem labs -- blood work -- EKG -- IV fluids Disposition - Disposition Disposition: HOME/ ROUTINE Disposition Time: 19:14 Condition: GOOD Forms: [employer] (Maltese) - Clinical Impression Clinical Impression: Rhabdomyolysis - Scribe Statement The provider has reviewed the documentation as recorded by the Scribsweta Ashraf Do Provider Attestation: All medical record entries made by the Scribe were at my direction and personally dictated by me. I have reviewed the chart and agree that the record accurately reflects my personal performance of the history, physical exam, medical decision making, and the department course for this patient. I have also personally directed, reviewed, and agree with the discharge instructions and disposition.
[2018-07-10 18:33] LABS: BASO # 0.1 K/uL (0.0-0.2); EOS # 0.1 K/uL (0.0-0.7); EOS % 0.6 % (0.0-4.0); HEMOGLOBIN 15.1 g/dL (12.0-18.0); LYMPH # 2.8 K/uL (1.0-4.3); LYMPH % 26.9 % (20.0-40.0); MEAN CELL VOLUME 85.8 fL (80.0-94.0); MEAN CORPUSCULAR HEMOGLOBIN 28.3 pg (27.0-31.0); MEAN PLATELET VOLUME 7.9 fL (7.2-11.7); MONO # 0.6 K/uL (0.0-0.8); MONO % 5.8 % (0.0-10.0); NEUT # 6.8 K/uL (1.8-7.0); NEUT % 65.7 % (50.0-75.0); RBC 5.34 Mil/uL (4.40-5.90); RED CELL DISTRIBUTION WIDTH 13.7 % (11.5-14.5); WHITE BLOOD COUNT 10.3 K/uL (4.8-10.8)
[2018-07-10 18:45] LABS: ALB/GLOB RATIO 1.8 (1.0-2.1); ALBUMIN 5.1 g/dL (3.5-5.0); ALT/SGPT 42 U/L (21-72); AST/SGOT 49 U/L (17-59); BLOOD UREA NITROGEN 16 mg/dL (9-20); CALCIUM 9.3 mg/dl (8.6-10.4); GFR NON-AFRICAN AMERICAN > 60
[2018-07-10 18:51] LABS: URINE BILIRUBIN NEGATIVE (NEGATIVE); URINE BLOOD NEGATIVE (NEGATIVE); URINE CLARITY Clear (Clear); URINE COLOR Straw (YELLOW); URINE GLUCOSE (UA) NORMAL (Normal); URINE LEUKOCYTE ESTERASE NEG Leu/uL (Negative); URINE PROTEIN NEGATIVE (NEGATIVE); URINE UROBILINOGEN NORMAL mg/dL (0.2-1.0)
[2018-07-10 19:35] LABS: BARBITURATES, UR NEGATIVE (NEGATIVE); BENZODIAZEPINES, UR NEGATIVE (NEGATIVE); OPIATES, UR NEGATIVE (NEGATIVE); PHENCYCLIDINE, UR NEGATIVE (NEGATIVE)
[2018-07-11 00:44] VITALS: BP 117/72; PULSE 80; RESP 20; TEMP 97.5; O2SAT 97
[2018-07-11] MEDS ORDERED: Sodium Chloride 0.9% 1,000 ML IV ONE (01:13)
== END 2018-07-11 01:25 | disposition home or self-care (01) ==
LOC: C.ER 17:52 → C.6T 19:09 → UNDOADMIN 19:09 → C.ER 07-11 01:25
DX: M62.82 Rhabdomyolysis (principal); F41.9 Anxiety disorder, unspecified
CPT/HCPCS: 80053; 80324; 80345; 80346; 80349; 80353; 80358; 80361; 81001; 82550; 83992; 85025; 96360; 96361; 99285; J7030